=== PATIENT | male | born 1950 | race Caucasian/White ===

== ENCOUNTER 2017-08-24 13:15 | Outpatient (CLI) | payer MEDICARE ==
[2017-08-24 15:08] LABS: Hemoglobin 14.4 g/dL (14.0-18.0); Mean Corpuscular HGB CONC 33.6 g/dL (32.0-36.0); Mean Corpuscular Hemoglobin 29.1 pg (27.0-31.0); Mean Corpuscular Volume 86.7 fL (78.0-98.0); Mean Platelet Volume 6.7 fL (7.4-10.4); Platelet Count 175 thou/uL (130-400); Red Blood Cell (RBC) Count 4.97 mill/uL (4.70-6.10); White Blood Cell (WBC) Count 10.3 thou/uL (4.8-10.8)
[2017-08-24 15:26] LABS: ALT (SGPT) 40 U/L (8-55); AST (SGOT) 21 U/L (5-34); Albumin 4.3 g/dL (3.4-4.8); Alkaline Phosphatase 116 U/L (40-150); Anion Gap 16 mmol/L (10-20); BUN (Urea Nitrogen) 19 mg/dL (8.4-25.7); Bilirubin, Total 0.5 mg/dL (0.2-1.2); Calc. Creatinine Clearance 0 mL/min (70-130); Calcium 9.1 mg/dL (7.8-10.44); Carbon Dioxide 20 mmol/L (23-31); Cardiac Risk 5.4 (Less than 4.5); Chloride 107 mmol/L (98-107); Cholesterol 198 mg/dl (< 200 Desired); Estimated GFR-MDRD 47; Globulin 3.4 g/dL (2.4-3.5); Glucose 121 mg/dL (80-115); HDL Cholesterol 37 mg/dL (>60 Neg Risk); Potassium 4.9 mmol/L (3.5-5.1); Protein, Total 7.7 g/dL (5.8-8.1); Sodium 138 mmol/L (136-145); Triglycerides 428 mg/dL (Less than 150)
[2017-08-24 20:36] LABS: Hemoglobin A1c 5.5 % (4.0-6.0)
[2017-08-25 09:17] LABS: LDL Cholesterol, Calculated 75 mg/dL
== END 2017-08-24 13:16 | disposition home or self-care (01) ==
LOC: MADLAB 13:15
DX: Z13.220 Encounter for screening for lipoid disorders (principal); I11.0 Hypertensive heart disease with heart failure; I50.9 Heart failure, unspecified; E78.00 Pure hypercholesterolemia, unspecified; E11.9 Type 2 diabetes mellitus without complications; Z79.899 Other long term (current) drug therapy
CPT/HCPCS: 36415; 80053; 80061; 83036; 84443; 85027

== ENCOUNTER 2017-11-28 14:31 | Emergency (ER) | payer MEDICARE ==
[~2017-11-28 14:31] MED LIST: Sodium Chloride 0.9% 100 ML BAG ONE
[2017-11-28 15:30] LABS: #Basophils 0.1 thou/uL (0.0-0.2); #Eosinphils 0.4 thou/uL (0.0-0.7); #Lymphocytes 2.4 thou/uL (1.20-3.40); %Basophils 1.2 % (0.0-1.0); %Eosinophils 3.3 % (0.0-10.0); %Monocytes 9.3 % (0.0-10.0); %Neutrophils 64.2 % (42.0-75.0); Hemoglobin 11.8 g/dL (14.0-18.0); Mean Corpuscular HGB CONC 34.2 g/dL (32.0-36.0); Mean Corpuscular Hemoglobin 29.8 pg (27.0-31.0); Mean Platelet Volume 7.9 fL (7.4-10.4); Platelet Count 166 thou/uL (130-400); RBC Distribution Width 13.3 % (11.5-14.5); Red Blood Cell (RBC) Count 3.95 mill/uL (4.70-6.10)
[2017-11-28 15:48] LABS: ALT (SGPT) 27 U/L (8-55); AST (SGOT) 22 U/L (5-34); Albumin 3.6 g/dL (3.4-4.8); Alkaline Phosphatase 91 U/L (40-150); Anion Gap 16 mmol/L (10-20); BUN (Urea Nitrogen) 19 mg/dL (8.4-25.7); Bilirubin, Total 0.4 mg/dL (0.2-1.2); Calc. Creatinine Clearance 0 mL/min (70-130); Calcium 8.3 mg/dL (7.8-10.44); Carbon Dioxide 23 mmol/L (23-31); Chloride 106 mmol/L (98-107); Estimated GFR-MDRD 59; Glucose 100 mg/dL (80-115); Potassium 3.8 mmol/L (3.5-5.1); Protein, Total 6.6 g/dL (5.8-8.1); Sodium 141 mmol/L (136-145)
--- NOTE | 2017-11-28 15:49 | RAD ---
CHEST TWO VIEWS: HISTORY: Dyspnea. COMPARISON: 03/31/2012 and 11/14/2003 FINDINGS: The right-sided transvenous defibrillator is unchanged in position. There are sternotomy wires. Hea rt size is normal. Pulmonary vessels are within normal limits. There are patchy interstitial opacit ies throughout the lung parenchyma. Stable right costophrenic angle blunting. No pneumothorax or os seous abnormalities. IMPRESSION: 1. Interstitial opacities likely due to edema or infiltrate. Continued surveillance. 2. Stable blunting of the right costophrenic angle, likely representing an area of scar or atelectas is. POS: [facility]
[2017-11-28 15:51] LABS: CKMB 4.1 ng/mL (0-6.6); Troponin I 0.095 ng/mL (< 0.028)
[2017-11-28] MEDS ORDERED: Piperacillin/Tazobactam 3.375 GM VIAL ONE (16:22)
[2017-11-28] MEDS ORDERED: Pantoprazole 40 MG VIAL ONE (16:22)
[2017-11-28] MEDS ORDERED: Nitroglycerin 2% Ointment 1 INCH/1 GM Packet ONE (16:22)
[2017-11-28] MEDS ORDERED: Furosemide 40 MG/4 ML VIAL ONE (16:25)
[2017-11-28] MEDS ORDERED: Acetaminophen 500 MG TAB ONE (16:58)
--- NOTE | 2017-11-28 18:08 | CT ---
CT ARTERIOGRAM CHEST WITH IV CONTRAST AND 3D MIP IMAGING: HISTORY: Dyspnea. Chest pain. FINDINGS: There is good contrast opacification of the pulmonary arteries and thoracic aorta, with normal origin of great vessels at the aortic arch. Azygous fissure at the right apex. Mild patchy infiltrates at the right anterior and posterior lung bases. Minimal right pleural fluid. Nonenlarged, nonspecific lymph nodes scattered about the mediastinum. Within the partially visualized upper abdomen, a lobular, low density within the right liver lobe has the appearance of a cyst. IMPRESSION: 1. No CT evidence of pulmonary embolus. 2. Mild patchy right anterior and posterior basilar infiltrates. Clinical correlation regarding [facility] er signs and symptoms of right basilar pneumonitis is required. POS: [facility]
== END 2017-11-28 17:30 | disposition short-term general hospital (02) ==
LOC: MADERS 14:31
DX: R06.02 Shortness of breath (principal); R05 Cough; R79.89 Other specified abnormal findings of blood chemistry; R09.81 Nasal congestion; I10 Essential (primary) hypertension; Z87.891 Personal history of nicotine dependence; Z79.899 Other long term (current) drug therapy
CPT/HCPCS: 71046; 71275; 80053; 82553; 83605; 83880; 84484; 85025; 85379; 87040; 93005; 94760; 96365; 96375; C9113; J1940; J2543; J7050

== ENCOUNTER 2017-12-13 13:33 | Outpatient (CLI) | payer MEDICARE, OTHER ==
--- NOTE | 2017-12-13 14:59 | RAD ---
TWO VIEWS CHEST: Comparison: 11-28-17 History: Acute pneumonia. FINDINGS: Two views of the chest show a normal sized cardiomediastinal silhouette. Patient is status post nunez otomy. The pacemaker is unchanged in position. There is no evidence of consolidation, mass, or pleura l effusion. IMPRESSION: No evidence of acute cardiopulmonary disease. POS: [facility]
== END 2017-12-13 13:34 | disposition home or self-care (01) ==
LOC: MADRAD 13:33
PROVIDERS: ATTEND Obstetrics & Gynecology
DX: J18.9 Pneumonia, unspecified organism (principal)
CPT/HCPCS: 71046

== ENCOUNTER 2020-08-12 15:17 | Emergency (ER) | payer MEDICARE | END 2020-08-12 16:48 | disposition home or self-care (01) | LOC: MADERS 15:17 | DX: J02.0 Streptococcal pharyngitis (principal); Z71.6 Tobacco abuse counseling; R06.2 Wheezing; R05 Cough; R13.10 Dysphagia, unspecified; I35.0 Nonrheumatic aortic (valve) stenosis; I10 Essential (primary) hypertension; E78.00 Pure hypercholesterolemia, unspecified; Z87.891 Personal history of nicotine dependence; Z79.01 Long term (current) use of anticoagulants; Z79.899 Other long term (current) drug therapy; Z79.82 Long term (current) use of aspirin | CPT/HCPCS: 99406 ==

== ENCOUNTER 2020-09-13 17:09 | Emergency (ER) | payer MEDICARE | END 2020-09-13 18:55 | disposition home or self-care (01) | LOC: MADERS 17:09 | DX: J45.909 Unspecified asthma, uncomplicated (principal); J20.9 Acute bronchitis, unspecified; J01.90 Acute sinusitis, unspecified; I38 Endocarditis, valve unspecified; I35.0 Nonrheumatic aortic (valve) stenosis; E78.00 Pure hypercholesterolemia, unspecified; I10 Essential (primary) hypertension; Z87.891 Personal history of nicotine dependence; Z79.01 Long term (current) use of anticoagulants; Z79.82 Long term (current) use of aspirin; Z79.899 Other long term (current) drug therapy | CPT/HCPCS: 71045; 96372; J1040 ==